=== PATIENT | male | born 1995 | race Caucasian/White ===

== ENCOUNTER 2019-01-04 21:38 | Inpatient (IN) | payer OTHER ==
[~2019-01-04] VITALS: Ht 177.8 cm; Wt 106.0 kg
[2019-01-04] MEDS ORDERED: NS 1,000 ML IV ONE (22:30)
--- NOTE | 2019-01-04 22:32 | ECGEPIP ---
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
[2019-01-04 22:40] LABS: BASO % 0.2 % (0.0-1.0); HEMATOCRIT 43.8 % (42.0-52.0); HEMOGLOBIN 14.5 g/dl (13.5-17.5); LYMPH # 0.6 10^3/uL (1.5-6.5); LYMPH % 4.6 % (24.0-44.0); MEAN CORPUSCULAR HEMOGLOBIN 28.2 pg (27.0-33.0); MEAN CORPUSCULAR HGB CONC 33.1 g/dl (32.0-36.5); MONO # 0.5 10^3/uL (0.0-0.8); MONO % 3.7 % (0.0-5.0); NEUTROPHILS # 11.7 10^3/uL (1.8-7.7); NEUTROPHILS % 91.1 % (36.0-66.0); PLATELET COUNT, AUTOMATED 233 10^3/uL (150-450); RED BLOOD COUNT 5.15 10^6/uL (4.30-6.10); WHITE BLOOD COUNT 12.9 10^3/uL (4.0-10.0)
[2019-01-04 23:00] LABS: AMPHETAMINES LEVEL URINE NEGATIVE (NEGATIVE); BARBITURATES URINE NEGATIVE (NEGATIVE); BENZODIAZEPINES URINE NEGATIVE (NEGATIVE); CANNABINOIDS URINE NEGATIVE (NEGATIVE); COCAINE METABOLITE URINE NEGATIVE (NEGATIVE); METHADONE URINE NEGATIVE (NEGATIVE); OPIATES URINE NEGATIVE (NEGATIVE); PHENCYCLIDINE URINE NEGATIVE (NEGATIVE)
--- NOTE | 2019-01-04 23:07 | REPVR ---
EXAM: CT Head Without Contrast EXAM DATE/TIME: 01/04/2019 10:11 PM CLINICAL HISTORY: 23 years old, male; Altered mental status/memory loss; Additional info: AMS TECHNIQUE: Imaging protocol: Axial computed tomography images of the head without contrast. Radiation optimization: All CT scans at this facility use at least one of these dose optimization techniques: automated exposure control; mA and/or kV adjustment per patient size (includes targeted exams where dose is matched to clinical indication); or iterative reconstruction. COMPARISON: No relevant prior studies available. FINDINGS: Brain: Normal. No hemorrhage. Unremarkable white matter. No mass effect. Ventricles: Normal. No ventriculomegaly. Bones/joints: Unremarkable. No acute fracture. Sinuses: Visualized sinuses are unremarkable. No fluid levels. Mastoid air cells: Visualized mastoid air cells are well aerated. No mastoid effusion. Soft tissues: Unremarkable. IMPRESSION: No acute intracranial abnormality. Electronically signed by: Dahiana Umana On 01/04/2019 23:06:47 PM
--- NOTE | 2019-01-04 23:09 | REPVR ---
EXAM: CT Cervical Spine Without Contrast EXAM DATE/TIME: 01/04/2019 10:11 PM CLINICAL HISTORY: 23 years old, male; Other: AMS TECHNIQUE: Imaging protocol: Axial computed tomography images of the cervical spine without contrast. Coronal and sagittal reformatted images were created and reviewed. Radiation optimization: All CT scans at this facility use at least one of these dose optimization techniques: automated exposure control; mA and/or kV adjustment per patient size (includes targeted exams where dose is matched to clinical indication); or iterative reconstruction. COMPARISON: No relevant prior studies available. FINDINGS: Vertebrae: No acute fracture. Normal alignment. Discs/Spinal canal/Neural foramina: No spinal stenosis. No neural foraminal narrowing. Soft tissues: Unremarkable. Lungs: Lung apices are normal. IMPRESSION: No acute findings. Electronically signed by: Dahiana Umana On 01/04/2019 23:08:54 PM
[2019-01-04 23:13] LABS: ACETAMINOPHEN LEVEL < 2.0 UG/ML (10.0-30.0); ALBUMIN 3.6 GM/DL (3.2-5.2); ALT/SGPT 37 U/L (12-78); BILIRUBIN,DIRECT < 0.1 MG/DL (0.0-0.2); BILIRUBIN,TOTAL 0.2 MG/DL (0.2-1.0); BLOOD UREA NITROGEN 23 MG/DL (7-18); CALCIUM LEVEL 8.3 MG/DL (8.5-10.1); CARBON DIOXIDE LEVEL 22 MEQ/L (21-32); CHLORIDE LEVEL 109 MEQ/L (98-107); CK-MB VALUE MASS < 1.0 NG/ML (<3.6); CPK CREATINE PHOSPHOKINASE 46 U/L (39-308); CREATININE FOR GFR 1.37 MG/DL (0.70-1.30); ETHYL ALCOHOL (ETHANOL) < 0.003 % (0.000-0.010); GLOMERULAR FILTRATION RATE > 60.0 (>60); GLUCOSE, FASTING 134 MG/DL (70-100); MB/CK RELATIVE INDEX 2.17 (< OR =4); POTASSIUM SERUM 4.3 MEQ/L (3.5-5.1); SALICYLATE LEVEL < 1.7 MG/DL (5.0-30.0); SODIUM LEVEL 142 MEQ/L (136-145); THYROID STIMULATING HORMONE 0.679 uIU/ML (0.358-3.740); TOTAL PROTEIN 6.8 GM/DL (6.4-8.2); TROPONIN I < 0.02 NG/ML (< 0.10)
[2019-01-05] VITALS (11 sets, daily range): BP systolic 99–154; BP diastolic 52–98
[2019-01-05] MEDS ORDERED: MAALOX 30 ML SUSP *UDC PO PRN
[2019-01-05] MEDS ORDERED: ACETAMINOPHEN TAB 650MG DOSE (2X325MG) PO PRN
[2019-01-05] MEDS ORDERED: MOM 30ML SUSPENSION UDC PO PRN
[2019-01-05 02:07] LABS: ABG BASE EXCESS -3.3 (-2.0-2.0); ABG HCO3 21.9 MEQ/L (22.0-26.0); ABG O2 SATURATION 96.4 % (95.0-99.0); ABG PARTIAL PRESSURE CO2 40.1 mmHg (35.0-45.0); ABG PARTIAL PRESSURE O2 83.8 mmHg (75.0-100.0); ABG STANDARD HCO3 21.7 MEQ/L (22.0-26.0); ABG TOTAL CO2 23.2 MEQ/L (22.0-29.0); ABG pH (ARTERIAL) 7.356 UNITS (7.350-7.450)
[2019-01-05] MEDS: DOCUSATE SODIUM 100 MG CAP PO SCH ×3 (02:10→21:15)
--- NOTE | 2019-01-05 02:17 | HPEPDOC ---
General Date of Admission 01/04/19 Date of Service: Jan 04, 2019 Attending Physician: MCKAYLA LEWIS DO Chief Complaint The patient is a 23-year-old male admitted with a reason for visit of AMS. Source: Other (Grandmother) Exam Limitations: Garbled speech, Other (somnelent) Timing/Duration: 24 hours Severity: Severe Associated Symptoms: Unobtainable History of Present Illness 23 yo male last seen normal at 930pm on 01/03/19, found by grandmother this AM with "sleeping alot". In the afternoon as he continued to sleep, grandmother became concerned and called EMS. Patient was somnelent, awakened to voice and tactile stimulation. He speech was garbled. EMS, grandmother and cousin search patient room (he lives with grandmother) and NO MEDICATION bottles were found. Grandmother states she does not know who his PCP or psychiatrist is but that he was recently prescribe new sleeping pill. Grandmother states she doesn't know if he took the new pill and [facility] Home Medications Unable to Obtain Active Prescriptions or Reported Meds Allergies Coded Allergies: No Known Allergies (Unverified , 01/05/19) Past Medical History Medical History Pervasive mood disorder, autism (unknown spectrum) Surgical History unknown Family History Significant Family History: Other (no contact with mother; father healthy, uncle/aunts with DM) Social History * Smoker: non-smoker (per grandmother) Alcohol: other (no EtOH per grandmother) Psychosocial History: Mood disorder NOS A-FIB/CHADSVASC A-FIB History Current/History of A-Fib/PAF?: No Current PO Anticoag Therapy: No Review of Systems Other systems unable to obtain due to somnelent/altered mental status Physical Examination General Exam: Positive: No Acute Distress, Other (snoring, opens eyes to name, garbled speech, non sensical) Eye Exam: Positive: Other Eye Symptoms (pupils dilated but responsive) ENT Exam: Positive: Atraumatic, Mucous membr. moist/pink, Pharynx Normal Neck Exam: Positive: Supple, +2 carotid pulse wo bruit Chest Exam: Positive: Clear to auscultation, Normal air movement; Negative: Rales, Rhonchi, Wheezing Heart Exam: Positive: Rate Normal, Normal S1, Normal S2, Other (no murmur) Telemetry: Positive: No significant arrhythmia Abdomen Exam: Positive: Normal bowel sounds, Soft (NT ND ) Extremity Exam: Positive: Normal pulses, Other (no edema) Skin Exam: Positive: Nl turgor and temperature Neuro Exam: Positive: Other (unable to assess due to somnelent/altered mental status; moves all 4 extremities away from painful stimuli) Psych Exam: Positive: Other (unable to assess) Other physical findings CT SCAN HEAD/NECK: no acute finding CXR: images visualized with ED Doc - no cardiomegally, no infiltrates or effusions MRA/MRI head (ordered in ED ): pending Vital Signs Vital Signs Date Time Temp Pulse Resp B/P (MAP) Pulse Ox O2 Delivery O2 Flow Rate FiO2 01/04/19 23:16 94 20 138/73 (94) 97 Room Air 01/04/19 22:13 96.6 Laboratory Data Labs 24H Laboratory Tests 2 01/04/19 22:21: Immature Granulocyte % (Auto) 0.4, White Blood Count 12.9H, Red Blood Count 5.15, Hemoglobin 14.5, Hematocrit 43.8, Mean Corpuscular Volume 85.0, Mean Corpuscular Hemoglobin 28.2, Mean Corpuscular Hemoglobin Concent 33.1, Red Cell Distribution Width 13.0, Platelet Count 233, Neutrophils (%) (Auto) 91.1H, Lymphocytes (%) (Auto) 4.6L, Monocytes (%) (Auto) 3.7, Eosinophils (%) (Auto) 0.0, Basophils (%) (Auto) 0.2, Neutrophils # (Auto) 11.7H, Lymphocytes # (Auto) 0.6L, Monocytes # (Auto) 0.5, Eosinophils # (Auto) 0.0, Basophils # (Auto) 0.0, Nucleated Red Blood Cells % (auto) 0.0, Anion Gap 11, Glomerular Filtration Rate > 60.0, Calcium Level 8.3L, Aspartate Amino Transf (AST/SGOT) 21, Alanine Aminotransferase (ALT/SGPT) 37, Alkaline Phosphatase 98, Total Bilirubin 0.2, Direct Bilirubin < 0.1, Total Creatine Kinase 46, Creatine Kinase MB < 1.0, Creatine Kinase MB Relative Index 2.17, Troponin I < 0.02, Total Protein 6.8, Albumin 3.6, Albumin/Globulin Ratio 1.13, Thyroid Stimulating Hormone (TSH) 0.679, Salicylates Level < 1.7L, Acetaminophen Level < 2.0L, Ethyl Alcohol Level < 0.003 01/04/19 22:22: Urine Color YELLOW, Urine Appearance CLEAR, Urine pH 5.0, Urine Specific [place] 1.019, Urine Protein NEGATIVE, Urine Glucose (UA) NEGATIVE, Urine Ketones NEGATIVE, Urine Blood NEGATIVE, Urine Nitrite NEGATIVE, Urine Bilirubin NEGATIVE, Urine Urobilinogen 0.2, Urine Leukocyte Esterase NEGATIVE, Urine WBC (Auto) 0, Urine RBC (Auto) 0, Urine Hyaline Casts (Auto) 0, Urine Bacteria (Auto) NEGATIVE, Urine Squamous Epithelial Cells 0, Urine Sperm (Auto) , Urine Amphetamines Screen NEGATIVE, Urine Benzodiazepines Screen NEGATIVE, Urine Opiates Screen NEGATIVE, Urine Methadone Screen NEGATIVE, Urine Barbiturates Screen NEGATIVE, Urine Phencyclidine Screen NEGATIVE, Urine Cocaine Metabolite Screen NEGATIVE, Urine Cannabinoids Screen NEGATIVE CBC/BMP Laboratory Tests 01/04/19 22:21 Red Blood Count 5.15, Mean Corpuscular Volume 85.0, Mean Corpuscular Hemoglobin 28.2, Mean Corpuscular Hemoglobin Concent 33.1, Red Cell Distribution Width 13.0, Neutrophils (%) (Auto) 91.1 H, Lymphocytes (%) (Auto) 4.6 L, Monocytes (%) (Auto) 3.7, Eosinophils (%) (Auto) 0.0, Basophils (%) (Auto) 0.2, Neutrophils # (Auto) 11.7 H, Lymphocytes # (Auto) 0.6 L, Monocytes # (Auto) 0.5, Eosinophils # (Auto) 0.0, Basophils # (Auto) 0.0 RAD Interpretation STUDY: CXR Rad Actions: Report Not Available, Films Reviewed RAD Interpretation: Normal Assessment/Plan Altered mental status - probable toxic encephalopathy due to medication Admit, PCU, supportive care. urine drug screen and ETOH level negative. contact harjit in AM for med rec list consider psych consult when patient alert Urine retention - acuña cath placed CODE STATUS: FULL DVT PROPHYLAXIS: enoxaprin Plan / VTE VTE Prophylaxis Ordered?: Yes MCKAYLA LEWIS DO Jan 04, 2019 23:48
--- NOTE | 2019-01-05 02:52 | REPVR ---
EXAM: MR Head Without Contrast EXAM DATE/TIME: 01/05/2019 1:22 AM CLINICAL HISTORY: 23 years old, male; Altered mental status/memory loss and malaise or fatigue; Lethargy; Additional info: CVA TECHNIQUE: Imaging protocol: MR of the head without contrast. COMPARISON: MRA BRAIN W/O CONTRAST 01/05/2019 12:50:17 AM FINDINGS: Brain: There is no acute infarct, intracranial hemorrhage, mass effect, or herniation. The cortical gyration pattern, ramos matter, white matter, basal ganglia, thalami, and cerebellum are normal in appearance. Brainstem: Normal. Midline shift: There is no midline shift. Ventricles: Normal. No ventriculomegaly. Bones/joints: Unremarkable. Soft tissues: Unremarkable. Sinuses: There is mild mucosal thickening in the maxillary sinuses, ethmoid sinuses, and left sphenoid sinus. No air-fluid levels are noted in the sinuses. Mastoid air cells: Normal as visualized. No mastoid effusion. Orbits: Unremarkable. IMPRESSION: Normal MRI brain without contrast. No acute infarct or acute intracranial process. Electronically signed by: Chuck Melara On 01/05/2019 02:52:10 AM
--- NOTE | 2019-01-05 03:55 | REPVR ---
EXAM: MR Angiogram Head Without Contrast, Arteries EXAM DATE/TIME: 01/05/2019 1:22 AM CLINICAL HISTORY: 23 years old, male; Drowsiness or somnolence; Additional info: CVA TECHNIQUE: Imaging protocol: MR angiogram head without contrast. Exam focused on the arteries. COMPARISON: No relevant prior studies available. FINDINGS: Right internal carotid artery: Unremarkable. Intracranial segment is patent with no significant stenosis. No aneurysm. Right anterior cerebral artery: Unremarkable. No occlusion or significant stenosis. No aneurysm. Right middle cerebral artery: Unremarkable. No occlusion or significant stenosis. No aneurysm. Right posterior cerebral artery: Unremarkable. No occlusion or significant stenosis. No aneurysm. Right vertebral artery: Unremarkable. No occlusion or significant stenosis. No aneurysm. Left internal carotid artery: Unremarkable. Intracranial segment is patent with no significant stenosis. No aneurysm. Left anterior cerebral artery: Unremarkable. No occlusion or significant stenosis. No aneurysm. Left middle cerebral artery: Unremarkable. No occlusion or significant stenosis. No aneurysm. Left posterior cerebral artery: Unremarkable. No occlusion or significant stenosis. No aneurysm. Left vertebral artery: Dominant. Unremarkable. No occlusion or significant stenosis. No aneurysm. Basilar artery: Unremarkable. No occlusion or significant stenosis. No aneurysm. IMPRESSION: No acute findings. Electronically signed by: Dahiana Umana On 01/05/2019 03:54:46 AM
[2019-01-05 05:00] LABS: HEMATOCRIT 43.7 % (42.0-52.0); HEMOGLOBIN 14.1 g/dl (13.5-17.5); MEAN CORPUSCULAR HEMOGLOBIN 27.4 pg (27.0-33.0); MEAN CORPUSCULAR HGB CONC 32.3 g/dl (32.0-36.5); MEAN CORPUSCULAR VOLUME 84.9 fl (80.0-96.0); PLATELET COUNT, AUTOMATED 259 10^3/uL (150-450); RED BLOOD COUNT 5.15 10^6/uL (4.30-6.10); WHITE BLOOD COUNT 13.5 10^3/uL (4.0-10.0)
[2019-01-05 05:23] LABS: ALBUMIN 3.4 GM/DL (3.2-5.2); ALT/SGPT 34 U/L (12-78); BILIRUBIN,TOTAL 0.2 MG/DL (0.2-1.0); BLOOD UREA NITROGEN 18 MG/DL (7-18); CALCIUM LEVEL 8.1 MG/DL (8.5-10.1); CARBON DIOXIDE LEVEL 25 MEQ/L (21-32); CHLORIDE LEVEL 111 MEQ/L (98-107); CREATININE FOR GFR 0.93 MG/DL (0.70-1.30); GLOMERULAR FILTRATION RATE > 60.0 (>60); GLUCOSE, FASTING 122 MG/DL (70-100); POTASSIUM SERUM 4.2 MEQ/L (3.5-5.1); SODIUM LEVEL 142 MEQ/L (136-145); TOTAL PROTEIN 6.9 GM/DL (6.4-8.2)
--- NOTE | 2019-01-05 07:46 | REP ---
Clinical: Altered mental status . Comparison: None . Technique: PA and cross-table lateral. Findings: The mediastinum and cardiac silhouette are normal. The lung downing are clear and without acute consolidation, effusion, or pneumothorax. The skeletal structures are intact and normal. Impression: 1. No acute cardiopulmonary process. Electronically Signed by Parish Dallas MD 01/05/2019 07:38 A
[2019-01-05] MEDS ORDERED: MED REC COMMENT (08:48)
[2019-01-05] MEDS ORDERED: ARIP1TAB PO (08:48)
[2019-01-05] MEDS ORDERED: ENOXAPARIN 40 MG/0.4 ML SYRINGE (J1650) SC SCH (09:00)
[2019-01-05] MEDS ORDERED: ONDANSETRON 4MG/2ML VIAL (J2405) IV PRN (10:45)
--- NOTE | 2019-01-05 12:50 | IPNPDOC ---
Subjective Date Seen The patient was seen on 01/05/19. Subjective Chief Complaint/HPI pateint says he is still a little dizzy and light headed when he sits up otherwise feeling better. He was still nauseous this am , No fever or chills, denies any sob or chest pain. I asked him what he took said several different kinds of pills because he wanted to relax and sleep a little. He tried one kind it was not working so then he tried the other kinds that he had at home. He denied any thoughts about self harm or thoughts or intensions to commit suicide. He says he does not remember what happened after taking the pills. He did say he threw the bottles in the trash after he took them. Cannot say how many pills he took. His grandmother later brought in some bottles that she found in the trash they were all empty, Oxcarbamazepine 300 mg filled in September 2018 for 30 pills, seroquel 100 mg also filled in september for 30 pills, olanzapine filled on 12/09/18 for 15 pills. Does nt remember how may pills were there in each bottle. As per grandmother he was diagnosed with Autism as a child. Objective Physical Examination General Exam: Positive: Alert, Cooperative, No Acute Distress Eye Exam: Positive: PERRLA, Conjunctiva & lids normal ENT Exam: Positive: Atraumatic, Mucous membr. moist/pink, Pharynx Normal Neck Exam: Positive: Supple, +2 carotid pulse wo bruit Chest Exam: Positive: Clear to auscultation, Normal air movement; Negative: Rales, Rhonchi, Wheezing Heart Exam: Positive: Rate Normal, Regular Rhythm, Normal S1, Normal S2; Negative: Gallops, Murmurs, Rubs Telemetry: Positive: No significant arrhythmia Abdomen Exam: Positive: Normal bowel sounds, Soft; Negative: Tenderness Extremity Exam: Positive: Normal pulses; Negative: Clubbing, Cyanosis, Edema Skin Exam: Positive: Nl turgor and temperature, Other skin issue (bug bites); Negative: Breakdown Neuro Exam: Positive: Other (unable to assess due to somnelent/altered mental status; moves all 4 extremities away from painful stimuli) Psych Exam: Positive: Anxiety, Memory Intact, Oriented x 3, Other Assessment /Plan Assessment 23 year old male with pervasive developmental disorder/ Asperger's/Autism spectrum disorder, obesity was admitted for toxic encephalopathy due to intake of multiple prescription medications. Toxic Encephalopathy improving. due to intake of seroquel, oxcarbazepine, aripiprazole does not remember how m any were there in each bottle. He took them on 01/03/18 night. will get a follow up EKG Denied any suicidal thoughts or suicidal ideas or intent this morning. Corroborated with grandmother and as per her he was doing good has a steady job, has plans for future. So she also does not think he was depressed or wanted to commit suicide She did mention that he was a little upset with his psychiatrist as he was told that he outgrew his Autism. SHe said that she is going to keep his meds with her from now on and dispense them herself. Developmental disorder/ Asperger/Autism follow up with own psychiatrist. Bed bugs/ fleas bites in legs decontamination and contact precautions as per hospital policy Plan/VTE VTE Prophylaxis Ordered?: Yes VS, I&O, 24H, Fishbone Vital Signs/I&O Vital Signs Date Time Temp Pulse Resp B/P (MAP) Pulse Ox O2 Delivery O2 Flow Rate FiO2 01/05/19 08:00 99.4 95 12 116/65 (82) 99 01/05/19 00:24 Room Air I&O- Last 24 Hours up to 6 AM 01/05/19 05:59 Intake Total 1000 ml Output Total 1150 ml Balance -150 ml Laboratory Data 24H LABS Laboratory Tests 2 01/04/19 22:21: Immature Granulocyte % (Auto) 0.4, White Blood Count 12.9H, Red Blood Count 5.15, Hemoglobin 14.5, Hematocrit 43.8, Mean Corpuscular Volume 85.0, Mean Corpuscular Hemoglobin 28.2, Mean Corpuscular Hemoglobin Concent 33.1, Red Cell Distribution Width 13.0, Platelet Count 233, Neutrophils (%) (Auto) 91.1H, Lymphocytes (%) (Auto) 4.6L, Monocytes (%) (Auto) 3.7, Eosinophils (%) (Auto) 0.0, Basophils (%) (Auto) 0.2, Neutrophils # (Auto) 11.7H, Lymphocytes # (Auto) 0.6L, Monocytes # (Auto) 0.5, Eosinophils # (Auto) 0.0, Basophils # (Auto) 0.0, Nucleated Red Blood Cells % (auto) 0.0, Anion Gap 11, Glomerular Filtration Rate > 60.0, Calcium Level 8.3L, Aspartate Amino Transf (AST/SGOT) 21, Alanine Ami notransferase (ALT/SGPT) 37, Alkaline Phosphatase 98, Total Bilirubin 0.2, Direct Bilirubin < 0.1, Total Creatine Kinase 46, Creatine Kinase MB < 1.0, Creatine Kinase MB Relative Index 2.17, Troponin I < 0.02, Total Protein 6.8, Albumin 3.6, Albumin/Globulin Ratio 1.13, Thyroid Stimulating Hormone (TSH) 0.679, Salicylates Level < 1.7L, Acetaminophen Level < 2.0L, Ethyl Alcohol Level < 0.003 01/04/19 22:22: Urine Color YELLOW, Urine Appearance CLEAR, Urine pH 5.0, Urine Specific [place] 1.019, Urine Protein NEGATIVE, Urine Glucose (UA) NEGATIVE, Urine Ketones NEGATIVE, Urine Blood NEGATIVE, Urine Nitrite NEGATIVE, Urine Bilirubin NEGATIVE, Urine Urobilinogen 0.2, Urine Leukocyte Esterase NEGATIVE, Urine WBC (Auto) 0, Urine RBC (Auto) 0, Urine Hyaline Casts (Auto) 0, Urine Bacteria (Auto) NEGATIVE, Urine Squamous Epithelial Cells 0, Urine Sperm (Auto) , Urine Amphetamines Screen NEGATIVE, Urine Benzodiazepines Screen NEGATIVE, Urine Opiates Screen NEGATIVE, Urine Methadone Screen NEGATIVE, Urine Barbiturates Screen NEGATIVE, Urine Phencyclidine Screen NEGATIVE, Urine Cocaine Metabolite Screen NEGATIVE, Urine Cannabinoids Screen NEGATIVE 01/05/19 01:53: Blood Gas Bicarbonate Standard 21.7L, Arterial Blood pH 7.356, Arterial Blood Partial Pressure CO2 40.1, Arterial Blood Partial Pressure O2 83.8, Arterial Blood Total CO2 23.2, Arterial Blood HCO3 21.9L, Arterial Blood Base Excess - 3.3L, Arterial Blood Oxygen Saturation 96.4 01/05/19 04:40: Nucleated Red Blood Cells % (auto) 0.0, Anion Gap 6L, Glomerular Filtration Rate > 60.0, Calcium Level 8.1L, Aspartate Amino Transf (AST/SGOT) 17, Alanine Aminotransferase (ALT/SGPT) 34, Alkaline Phosphatase 93, Total Bilirubin 0.2, Total Protein 6.9, Albumin 3.4, Albumin/Globulin Ratio 0.97L, Blood Urea Nitrogen 18, Creatinine 0.93, Sodium Level 142, Potassium Level 4.2, Chloride Level 111H, Carbon Dioxide Level 25 01/05/19 10:51: CBC/BMP Laboratory Tests 01/04/19 22:21 Red Blood Count 5.15, Mean Corpuscular Volume 85.0, Mean Corpuscular Hemoglobin 28.2, Mean Corpuscular Hemoglobin Concent 33.1, Red Cell Distribution Width 13.0, Neutrophils (%) (Auto) 91.1 H, Lymphocytes (%) (Auto) 4.6 L, Monocytes (%) (Auto) 3.7, Eosinophils (%) (Auto) 0.0, Basophils (%) (Auto) 0.2, Neutrophils # (Auto) 11.7 H, Lymphocytes # (Auto) 0.6 L, Monocytes # (Auto) 0.5, Eosinophils # (Auto) 0.0, Basophils # (Auto) 0.0 01/05/19 04:40 Red Blood Count 5.15, Mean Corpuscular Volume 84.9, Mean Corpuscular Hemoglobin 27.4, Mean Corpuscular Hemoglobin Concent 32.3, Red Cell Distribution Width 13.2, Calcium Level 8.1 L, Aspartate Amino Transf (AST/SGOT) 17, Alanine Aminotransferase (ALT/SGPT) 34, Alkaline Phosphatase 93, Total Bilirubin 0.2, Total Protein 6.9, Albumin 3.4 CHRIS SERRANO MD Jan 05, 2019 11:54
[2019-01-06 02:35] VITALS: O2SAT 98
[2019-01-06 06:00] VITALS: BP 148/90
[2019-01-06 07:11] LABS: BASO # 0.1 10^3/uL (0.0-0.2); BASO % 0.5 % (0.0-1.0); EOS # 0.1 10^3/uL (0.0-0.50); EOS % 1.1 % (0.0-3.0); HEMATOCRIT 41.6 % (42.0-52.0); HEMOGLOBIN 13.6 g/dl (13.5-17.5); LYMPH # 1.7 10^3/uL (1.5-6.5); LYMPH % 17.8 % (24.0-44.0); MEAN CORPUSCULAR HEMOGLOBIN 27.3 pg (27.0-33.0); MEAN CORPUSCULAR HGB CONC 32.7 g/dl (32.0-36.5); MEAN CORPUSCULAR VOLUME 83.5 fl (80.0-96.0); MONO # 0.9 10^3/uL (0.0-0.8); MONO % 9.1 % (0.0-5.0); NEUTROPHILS # 6.8 10^3/uL (1.8-7.7); NEUTROPHILS % 71.3 % (36.0-66.0); PLATELET COUNT, AUTOMATED 241 10^3/uL (150-450); RED BLOOD COUNT 4.98 10^6/uL (4.30-6.10); WHITE BLOOD COUNT 9.5 10^3/uL (4.0-10.0)
[2019-01-06] MEDS ORDERED: OMEP-218 PO (07:41)
[2019-01-06 08:11] LABS: BLOOD UREA NITROGEN 15 MG/DL (7-18); CALCIUM LEVEL 8.5 MG/DL (8.5-10.1); CARBON DIOXIDE LEVEL 27 MEQ/L (21-32); CHLORIDE LEVEL 109 MEQ/L (98-107); CREATININE FOR GFR 0.97 MG/DL (0.70-1.30); GLOMERULAR FILTRATION RATE > 60.0 (>60); GLUCOSE, FASTING 88 MG/DL (70-100); POTASSIUM SERUM 3.8 MEQ/L (3.5-5.1); SODIUM LEVEL 142 MEQ/L (136-145)
--- NOTE | 2019-01-06 11:56 | DS.PDOC ---
Discharge Summary General Date of Admission Jan 04, 2019 at 23:48 Date of Discharge 01/06/19 Discharge Summary PROCEDURES PERFORMED DURING STAY: [None]. DISCHARGE DIAGNOSES: Toxic metabolic encephalopathy Autism spectrum disorder/ Asperger's/ pervasive developmental disorder Obesity Bed bug bites COMPLICATIONS/CHIEF COMPLAINT: Altered Mental Status. HISTORY OF PRESENT ILLNESS: Please see history and physical HOSPITAL COURSE: 23 year old male with pervasive developmental disorder/ Asperger's/Autism spectrum disorder, obesity was admitted for toxic encephalopathy due to intake of multiple prescription medications. Toxic Encephalopathy resolved due to intake of Seroquel, oxcarbazepine, aripiprazole does not remember how many were there in each bottle. He took them on 01/03/18 night. No qTc abnormality Denied any suicidal thoughts or suicidal ideas or intent this morning. Corroborated with grandmother and as per her he was doing good has a steady job, has plans for future. So she also does not think he was depressed or wanted to commit suicide She did mention that he was a little upset with his psychiatrist as he was told that he outgrew his Autism. She said that she is going to keep his meds with her from now on and dispense them herself. Has been set up with follow up appointment with his psychiatrist. Pervasive Developmental disorder/ Asperger/Autism follow up with own psychiatrist. Bed bugs/ fleas bites in legs decontaminated DISCHARGE MEDICATIONS: Please see below. ALLERGIES: Please see below. PHYSICAL EXAMINATION ON DISCHARGE: VITAL SIGNS: Please see below. General Exam: Positive: Alert, Cooperative, No Acute Distress Eye Exam: Positive: PERRLA, Conjunctiva & lids normal ENT Exam: Positive: Atraumatic, Mucous membr. moist/pink, Pharynx Normal Neck Exam: Positive: Supple, +2 carotid pulse wo bruit Chest Exam: Positive: Clear to auscultation, Normal air movement; Negative: Rales, Rhonchi, Wheezing Heart Exam: Positive: Rate Normal, Regular Rhythm, Normal S1, Normal S2; Negative: Gallops, Murmurs, Rubs Telemetry: Positive: No significant arrhythmia Abdomen Exam: Positive: Normal bowel sounds, Soft; Negative: Tenderness Extremity Exam: Positive: Normal pulses; Negative: Clubbing, Cyanosis, Edema Skin Exam: Positive: Nl turgor and temperature, Other skin issue (bug bites); Negative: Breakdown Neuro Exam: Positive: Other (unable to assess due to somnelent/altered mental status; moves all 4 extremities away from painful stimuli) Psych Exam: Positive: Anxiety, Memory Intact, Oriented x 3, Other LABORATORY DATA: Please see below. ACTIVITY: [As tolerated]. DIET: As tolerated DISPOSITION: 01 Home, Self-Care. DISCHARGE INSTRUCTIONS: Follow up with Psychiatrist within 1 week DISCHARGE CONDITION: [Stable]. TIME SPENT ON DISCHARGE: 35 minutes. Vital Signs/I&Os Vital Signs Date Time Temp Pulse Resp B/P (MAP) Pulse Ox O2 Delivery O2 Flow Rate FiO2 01/06/19 06:00 97.6 112 20 148/90 (109) 97 01/06/19 02:35 Room Air I&O- Last 24 Hours up to 6 AM 01/06/19 06:00 Intake Total 1560 ml Output Total 1025 ml Balance 535 ml Laboratory Data Labs 24H Laboratory Tests 2 01/06/19 06:50: Immature Granulocyte % (Auto) 0.2, White Blood Count 9.5, Red Blood Count 4.98, Hemoglobin 13.6, Hematocrit 41.6L, Mean Corpuscular Volume 83.5, Mean Corpuscular Hemoglobin 27.3, Mean Corpuscular Hemoglobin Concent 32.7, Red Cell Distribution Width 13.3, Platelet Count 241, Neutrophils (%) (Auto) 71.3H, Lymphocytes (%) (Auto) 17.8L, Monocytes (%) (Auto) 9.1H, Eosinophils (%) (Auto) 1.1, Basophils (%) (Auto) 0.5, Neutrophils # (Auto) 6.8, Lymphocytes # (Auto) 1.7, Monocytes # (Auto) 0.9H, Eosinophils # (Auto) 0.1, Basophils # (Auto) 0.1, Nucleated Red Blood Cells % (auto) 0.0, Anion Gap 6L, Glomerular Filtration Rate > 60.0, Blood Urea Nitrogen 15, Creatinine 0.97, Sodium Level 142, Potassium Level 3.8, Chloride Level 109H, Carbon Dioxide Level 27, Calcium Level 8.5 CBC/BMP Laboratory Tests 01/06/19 06:50 Red Blood Count 4.98, Mean Corpuscular Volume 83.5, Mean Corpuscular Hemoglobin 27.3, Mean Corpuscular Hemoglobin Concent 32.7, Red Cell Distribution Width 1 3.3, Neutrophils (%) (Auto) 71.3 H, Lymphocytes (%) (Auto) 17.8 L, Monocytes (%) (Auto) 9.1 H, Eosinophils (%) (Auto) 1.1, Basophils (%) (Auto) 0.5, Neutrophils # (Auto) 6.8, Lymphocytes # (Auto) 1.7, Monocytes # (Auto) 0.9 H, Eosinophils # (Auto) 0.1, Basophils # (Auto) 0.1, Calcium Level 8.5 Discharge Medications Scheduled Omeprazole (Omeprazole) 20 Mg Capsule.dr, 1 CAP PO DAILY Allergies Coded Allergies: No Known Allergies (Unverified , 01/05/19) CHRIS SERRANO MD Jan 06, 2019 11:56
--- NOTE | 2019-01-06 13:22 | ECGEPIP ---
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
== END 2019-01-06 09:57 | disposition home or self-care (01) | DRG 812 ==
LOC: M ED 21:38 → M ED INP 23:48 → M ICU 01-05 01:37 → M PCU 01-05 12:20 → M MSPAV 01-05 16:19
PROVIDERS: ADMIT Family Medicine; ATTEND Internal Medicine Nephrology
DX: T43.591A Poisoning by other antipsychotics and neuroleptics, accidental (unintentional), initial encounter (principal); G92 Toxic encephalopathy; T42.1X1A Poisoning by iminostilbenes, accidental (unintentional), initial encounter; E66.9 Obesity, unspecified; F84.5 Asperger's syndrome